=== PATIENT | female | born 1965 | race Caucasian/White ===

== ENCOUNTER 2021-11-09 19:37 | Emergency (ER) | payer MEDICAID ==
[~2021-11-09] VITALS: Ht 152.4 cm; Wt 51.8 kg
[2021-11-09] MEDS ORDERED: IBUPROFEN 600 MG TABLET PO ONE (20:00)
[2021-11-09] MEDS ORDERED: LIDOCAINE 5% TRANSDERMAL PATCH TD ONE (20:00)
[2021-11-09 21:11] VITALS: BP 150/80
== END 2021-11-09 21:13 | disposition home or self-care (01) ==
LOC: EMS 19:39
DX: S39.012A Strain of muscle, fascia and tendon of lower back, initial encounter (principal); W18.39XA Other fall on same level, initial encounter; Y93.89 Activity, other specified; Y92.89 Other specified places as the place of occurrence of the external cause; Y99.8 Other external cause status
CPT/HCPCS: 99282; 99283